=== PATIENT | female | born 1995 | race Caucasian/White ===

== ENCOUNTER 2017-07-22 12:32 | Emergency (ER) | payer OTHER ==
[2017-07-22 14:03] LABS: BASO % 0.3 % (0.0-1.0); EOS # 0.1 10^3/uL (0.0-0.50); EOS % 0.4 % (0.0-3.0); HEMATOCRIT 40.6 % (36.0-47.0); HEMOGLOBIN 14.2 g/dl (12.0-15.5); IMMATURE GRANULOCYTE % 0.5 % (0-3.0); LYMPH # 2.6 10^3/uL (1.5-6.5); LYMPH % 18.7 % (24.0-44.0); MEAN CORPUSCULAR HEMOGLOBIN 30.9 pg (27.0-33.0); MEAN CORPUSCULAR VOLUME 88.3 fl (80.0-96.0); MONO % 7.5 % (0.0-5.0); NEUTROPHILS % 72.6 % (36.0-66.0); PLATELET COUNT, AUTOMATED 271 10^3/uL (150-450); RED CELL DISTRIBUTION WIDTH 12.9 % (11.5-14.5); WHITE BLOOD COUNT 13.8 10^3/uL (4.0-10.0)
[2017-07-22 14:19] LABS: BILIRUBIN, URINE MANUAL NEGATIVE (NEGATIVE); GLUCOSE, URINE (UA) MANUAL NEGATIVE (NEGATIVE); KETONE, URINE MANUAL 1+ mg/dL (NEGATIVE); NITRITE, URINE MANUAL RFX NEGATIVE (NEGATIVE); PROTEIN, URINE MANUAL REFLEX NEGATIVE (NEGATIVE); UROBILINOGEN, URINE MANUAL NORMAL (NORMAL)
[2017-07-22 14:20] LABS: BLOOD URINE MANUAL RFX TRACE (NEGATIVE); MICROSCOPIC INDICATED? RFX YES (NO)
[2017-07-22 14:23] LABS: ALBUMIN 3.6 GM/DL (3.2-5.2); ALKALINE PHOSPHATASE 52 U/L (45-117); ALT/SGPT 44 U/L (12-78); ANION GAP 8 MEQ/L (8-16); AST/SGOT 26 U/L (7-37); BACTERIA, URINE SMALL AMOUNT; BILIRUBIN,DIRECT 0.1 MG/DL (0.0-0.2); BILIRUBIN,TOTAL 0.4 MG/DL (0.2-1.0); BLOOD UREA NITROGEN 6 MG/DL (7-18); CARBON DIOXIDE LEVEL 24 MEQ/L (21-32); CHLORIDE LEVEL 107 MEQ/L (98-107); CREATININE FOR GFR 0.58 MG/DL (0.55-1.30); GLOMERULAR FILTRATION RATE > 60.0 (>60); GLUCOSE, FASTING 82 MG/DL (70-100); HYALINE CAST, URINE NONE SEEN /lpf (0-1); LIPASE 146 U/L (73-393); MICROSCOPIC EXAM PERFORMED; MUCUS, URINE LARGE AMOUNT (NEGATIVE); POTASSIUM SERUM 3.5 MEQ/L (3.5-5.1); SODIUM LEVEL 139 MEQ/L (136-145); SQUAMOUS EPITHELIAL CELL URINE LARGE AMOUNT /hpf (SMALL AMT); TOTAL PROTEIN 7.6 GM/DL (6.4-8.2); WBC, URINE MAN RFX 30-40 /hpf (0-3)
[2017-07-22 14:53] LABS: CONTROL LINE HCG INT CTR LINE PRESENT; HCG, SERUM QUALITATIVE POSITIVE (NEGATIVE)
[2017-07-22] MEDS: NS 1,000 ML IV (14:55)
[2017-07-22] MEDS: ONDANSETRON 4MG/2ML VIAL (J2405) IV (14:55)
[2017-07-22 15:39] LABS: HCG, SERUM QUANTITATIVE 95792 MIU/ML
== END 2017-07-22 16:58 | disposition home or self-care (01) ==
LOC: M ED 12:32
DX: O23.41 Unspecified infection of urinary tract in pregnancy, first trimester (principal); R31.9 Hematuria, unspecified; Z3A.10 10 weeks gestation of pregnancy; O99.331 Smoking (tobacco) complicating pregnancy, first trimester; F17.210 Nicotine dependence, cigarettes, uncomplicated
CPT/HCPCS: J2405

== ENCOUNTER → 2017-08-20 | Outpatient (CLI) | payer OTHER ==
[2017-08-20 13:28] LABS: BASO # 0.1 10^3/uL (0.0-0.2); BASO % 0.4 % (0.0-1.0); EOS # 0.1 10^3/uL (0.0-0.50); HEMOGLOBIN 12.2 g/dl (12.0-15.5); IMMATURE GRANULOCYTE % 0.4 % (0-3.0); LYMPH # 2.7 10^3/uL (1.5-6.5); LYMPH % 19.6 % (24.0-44.0); MEAN CORPUSCULAR HEMOGLOBIN 30.9 pg (27.0-33.0); MEAN CORPUSCULAR HGB CONC 33.9 g/dl (32.0-36.5); MEAN CORPUSCULAR VOLUME 91.1 fl (80.0-96.0); MONO # 0.8 10^3/uL (0.0-0.8); MONO % 5.6 % (0.0-5.0); NEUTROPHILS # 9.9 10^3/uL (1.8-7.7); PLATELET COUNT, AUTOMATED 249 10^3/uL (150-450); RED BLOOD COUNT 3.95 10^6/uL (4.00-5.40); RED CELL DISTRIBUTION WIDTH 13.2 % (11.5-14.5); WHITE BLOOD COUNT 13.6 10^3/uL (4.0-10.0)
[2017-08-20 16:01] LABS: CHLAMYDIA DNA AMPLIFICATION NEGATIVE (NEGATIVE); GC DNA AMPLIFICATION NEGATIVE (NEGATIVE)
[2017-08-21 10:31] LABS: RUBELLA IgG QUALITATIVE IMMUNE (IMMUNE)
[2017-08-21 10:43] LABS: HBsAg Prenatal NEGATIVE (NEGATIVE)
[2017-08-21 11:03] LABS: HIV 1&2 SCREEN CENTAUR NEGATIVE (NEGATIVE)
== END ==
LOC: M SMT 09:11
DX: Z34.81 Encounter for supervision of other normal pregnancy, first trimester (principal); Z3A.12 12 weeks gestation of pregnancy

== ENCOUNTER → 2017-09-16 | Outpatient (CLI) | payer OTHER | LOC: M RAD 12:37 | DX: Z36.9 Encounter for antenatal screening, unspecified (principal); Z3A.18 18 weeks gestation of pregnancy | CPT/HCPCS: 76811 ==

== ENCOUNTER → 2017-10-04 | Outpatient (CLI) | payer OTHER | LOC: M SMT 13:57 | DX: Z13.79 Encounter for other screening for genetic and chromosomal anomalies (principal) | CPT/HCPCS: 36415 ==

== ENCOUNTER → 2017-10-30 | Outpatient (CLI) | payer OTHER | LOC: M RAD 10:05 | DX: Z34.82 Encounter for supervision of other normal pregnancy, second trimester (principal); Z36.89 Encounter for other specified antenatal screening; Z3A.25 25 weeks gestation of pregnancy | CPT/HCPCS: 76816 ==

== ENCOUNTER → 2017-11-05 | Outpatient (CLI) | payer OTHER ==
[2017-11-05 18:16] LABS: HEMATOCRIT 33.1 % (36.0-47.0); HEMOGLOBIN 10.9 g/dl (12.0-15.5); MEAN CORPUSCULAR HGB CONC 32.9 g/dl (32.0-36.5); PLATELET COUNT, AUTOMATED 299 10^3/uL (150-450); RED BLOOD COUNT 3.52 10^6/uL (4.00-5.40); RED CELL DISTRIBUTION WIDTH 12.8 % (11.5-14.5); WHITE BLOOD COUNT 16.7 10^3/uL (4.0-10.0)
[2017-11-05 18:38] LABS: GLUCOSE CHALLENGE TEST 1 HOUR 76 MG/DL (LESS THAN 140)
[2017-11-06 08:48] LABS: TYPE AND SCREEN 1 1
== END ==
LOC: M SMT 13:14
DX: Z34.82 Encounter for supervision of other normal pregnancy, second trimester (principal); Z36.89 Encounter for other specified antenatal screening
CPT/HCPCS: 82950

== ENCOUNTER → 2018-01-12 | Outpatient (CLI) | payer OTHER ==
[2018-01-12 22:42] LABS: APPEARANCE, URINE HAZY (CLEAR); BACTERIA, URINE AUTO NEGATIVE (NEGATIVE); BILIRUBIN, URINE AUTO NEGATIVE (NEGATIVE); BLOOD, URINE BLOOD NEGATIVE (NEGATIVE); COLOR, URINE YELLOW (YELLOW); GLUCOSE, URINE (UA) AUTO NEGATIVE (NEGATIVE); KETONE, URINE AUTO NEGATIVE (NEGATIVE); LEUKOCYTE ESTERASE, URINE AUTO 2+ (NEGATIVE); NITRITE, URINE AUTO NEGATIVE (NEGATIVE); PROTEIN, URINE AUTO NEGATIVE (NEGATIVE); RBC, URINE AUTO 3 /HPF (0-3); SPECIFIC GRAVITY URINE AUTO 1.003 (1.002-1.035); SQUAMOUS EPITHELIAL CELL UR AU 5 /HPF (0-6); UROBILINOGEN, URINE AUTO 0.2 mg/dL (0.0-2.0); WBC, URINE AUTO 25 /HPF (0-3)
== END ==
LOC: M LDO 21:27
DX: O26.893 Other specified pregnancy related conditions, third trimester (principal); M54.5 Low back pain; Z3A.35 35 weeks gestation of pregnancy
CPT/HCPCS: 59025

== ENCOUNTER → 2018-01-15 | Outpatient (REF) | payer OTHER | LOC: M LAB REF 13:05 | DX: Z34.83 Encounter for supervision of other normal pregnancy, third trimester (principal) ==

== ENCOUNTER 2018-02-11 11:35 | Inpatient (IN) | payer OTHER ==
[2018-02-11 12:51] LABS: HEMATOCRIT 32.5 % (36.0-47.0); HEMOGLOBIN 10.8 g/dl (12.0-15.5); MEAN CORPUSCULAR HGB CONC 33.2 g/dl (32.0-36.5); MEAN CORPUSCULAR VOLUME 90.3 fl (80.0-96.0); PLATELET COUNT, AUTOMATED 249 10^3/uL (150-450); RED CELL DISTRIBUTION WIDTH 13.9 % (11.5-14.5)
[2018-02-11] MEDS: LACTATED RINGER'S 1000 ML IV (14:40)
[2018-02-11] MEDS: OXYTOCIN DRIP 30 UNITS in APPROPRIATE DILUENT 1 EA IV ×2 (14:41→21:06)
[2018-02-11] MEDS: LR 1,000 ML IV ×2 (14:41→19:23)
[2018-02-11] MEDS ORDERED: FENTANYL 2MCG/ML ROPIVACAINE 0.2% IN 0.9% NACL 200ML IVBAG As Ordered (17:12)
[2018-02-11] MEDS ORDERED: REFRIGERATOR IV KEYS XX (18:00)
[2018-02-11] MEDS ORDERED: EPIDURAL COMMENT XX (18:00)
[2018-02-11] MEDS ORDERED: LACTATED RINGER'S 1000 ML IV (18:00)
[2018-02-11] MEDS ORDERED: ONDANSETRON 4MG/2ML VIAL (J2405) IV (18:00)
[2018-02-11] MEDS ORDERED: NALOXONE INJ 0.4 MG/1 ML VIAL (J2310) IV (18:00)
[2018-02-11] MEDS ORDERED: EPIDURAL/PCA KEYS XX (18:00)
[2018-02-11] MEDS ORDERED: diphenhydrAMINE INJ 50MG/ML VIAL (J1200) IV (18:00)
[2018-02-11] MEDS: FENTANYL/ROPIVACAINE/NACL BAG 200 ML EPIDURAL (18:00)
[2018-02-11] MEDS ORDERED: ePHEDrine SULFATE 25 MG/5 ML(5MG/ML) SYRINGE IV (18:00)
[2018-02-11] MEDS: BICITRA 30ML SOLN UDC PO (20:00)
[2018-02-11] MEDS ORDERED: AZITHROMYCIN INJ 500 MG, VIAL MATE ADAPTER 1 EACH in D5W 250 ML IV (20:00)
[2018-02-11] MEDS ORDERED: ceFAZolin 2 GM/D5W 50 ML IV BAG (J0690 PER 500MG) As Ordered (20:02)
[2018-02-11] MEDS ORDERED: LIDOCAINE 2% W/EPIN INJ 20ML **PRES FREE As Ordered (20:06)
[2018-02-11] MEDS ORDERED: OXYTOCIN INJ 10 UNITS/ML VIAL (J2590) As Ordered ×2 (20:09)
[2018-02-11] MEDS ORDERED: OXYTOCIN 30 UNITS IN 0.9% NaCl 500ML IV BAG (J2590) As Ordered (20:31)
[2018-02-11 21:08] LABS: CORD GAS ABE A -7.4; CORD GAS PCO2 A 59.6 mmHg; CORD GAS PH A 7.186 UNITS; CORD GAS PO2 A 37.3 mmHg; CORD GAS SBC A 17.9 MEQ/L; CORD GAS TCO2 A 23.9 MEQ/L
[2018-02-11 21:09] LABS: CORD GAS ABE V -6.3; CORD GAS HCO3 V 18.9 MEQ/L; CORD GAS O2 SAT V 86.5 %; CORD GAS PCO2 V 37.1 mmHg; CORD GAS PH V 7.325 UNITS; CORD GAS SBC V 19.2 MEQ/L
[2018-02-11] MEDS ORDERED: ANUSOL HC CREAM 30GM TOP (21:15)
[2018-02-11] MEDS ORDERED: MEASLES,MUMPS,RUBELLA VACCINE INJ (MMR-II) (90707) SC (21:15)
[2018-02-11] MEDS ORDERED: DIBUCAINE 1% OINTMENT 30GM TOP (21:15)
[2018-02-11] MEDS ORDERED: DOCUSATE SODIUM 100 MG CAP PO (21:15)
[2018-02-11] MEDS ORDERED: MOM 30ML SUSPENSION UDC PO (21:15)
[2018-02-11] MEDS: miSOPROStol 200 MCG TAB (S0191) PR (21:15)
[2018-02-11] MEDS: METHYLERGONOVINE MALEATE 0.2 MG/ML VIAL (J2210) IM (21:53)
[2018-02-11] MEDS: IBUPROFEN 800 MG TAB PO (21:54)
[2018-02-12] MEDS: METHYLERGONOVINE MALEATE 0.2 MG TAB PO ×4 (02:13→19:50)
[2018-02-12] MEDS: ACETAMINOPHEN 500 MG TAB PO (02:13)
[2018-02-12] MEDS: PRENATAL VITAMINS CHEWABLE TABLET PO (07:37)
[2018-02-12] MEDS: IBUPROFEN 800 MG TAB PO (07:38)
[2018-02-12 10:24] LABS: FETAL SCREEN PROF. 1 1
[2018-02-12] MEDS: RHOGAM 300 MCG (1500 IU) INJ (J2790) IM (10:45)
[2018-02-13] MEDS: IBUPROFEN 800 MG TAB PO (00:51)
[2018-02-13] MEDS ORDERED: METHYLERGONOVINE MALEATE 0.2 MG TAB PO (02:00)
[2018-02-13] MEDS: PRENATAL VITAMINS CHEWABLE TABLET PO (08:49)
== END 2018-02-13 13:35 | disposition home or self-care (01) | DRG 807 ==
LOC: M LDI 11:35 → M OBS 23:15
PROVIDERS: Advanced Practice Midwife
PROC: 10D07Z6 Extraction of Products of Conception, Vacuum, Via Natural or Artificial Opening (ICD-10-PCS; principal; 2018-02-11)
PROC: 0HQ9XZZ Repair Perineum Skin, External Approach (ICD-10-PCS; 2018-02-11)
DX: O99.334 Smoking (tobacco) complicating childbirth (principal); Z37.0 Single live birth; O69.1XX0 Labor and delivery complicated by cord around neck, with compression, not applicable or unspecified; Z3A.39 39 weeks gestation of pregnancy; O62.0 Primary inadequate contractions; O70.0 First degree perineal laceration during delivery; O75.89 Other specified complications of labor and delivery; F17.210 Nicotine dependence, cigarettes, uncomplicated